=== PATIENT | female | born 1955 | race Hispanic/Latino ===

== ENCOUNTER 2022-06-18 16:14 | Inpatient (IN) | payer MEDICARE ==
[~2022-06-18] VITALS: Ht 157.5 cm; Wt 61.2 kg
[2022-06-18] VITALS (11 sets, daily range): BP systolic 173–218; BP diastolic 75–96
--- NOTE | 2022-06-18 16:15 | NUR ---
PATIENT BROUGHT INTO ROOM VIA EMS STRETCHER IN [facility]. PROVIDER NOTIFIED OF PATIENT STATUS AND MET BEDSIDE IMMEDIATELY.
[2022-06-18 16:42] LABS: BASO% 0.6 % (0-3); EOS% 0.9 % (0-8); HEMATOCRIT 40.2 % (37.0-47.0); IMMATURE GRANULOCYTES 0.1 % (0.0-5.0); LYMPH% 17.4 % (15-41); MEAN CELL VOLUME 87.8 fL CALC (80.0-100.0); MEAN CORPUSCULAR HGB 28.4 pG CALC (26.0-32.0); MEAN CORPUSCULAR HGB CONC 32.3 g/dL CAL (32.0-36.0); MONO% 6.6 % (2-13); NEUT# 5.08 thou/uL (2.00-7.15); NEUT% 74.4 % (42-76); RED BLOOD COUNT 4.58 mill/uL (4.20-5.60); RED CELL DISTRI WIDTH 13.2 % (11.5-15.5)
[2022-06-18 16:58] LABS: PROTHROMBIN TIME 10.4 SECONDS (9.0-12.5)
[2022-06-18 17:01] LABS: ALBUMIN 4.4 g/dL (3.2-5.0); ALKALINE PHOSPHATASE 99 u/l (38-126); ANION GAP 11 (6-22 (CALC)); BUN 13 mg/dL (8-23); BUN/CREATININE RATIO 18 (12-20 (CALC)); CARBON DIOXIDE 26 mmol/l (22-30); CHLORIDE 107 mmol/l (95-108); CREATININE 0.7 mg/dL (0.5-1.0); GFR FOR AFR.AMER. > 60 ML/MIN (>=60 (CALC)); GFR OTHER RACES > 60 ML/MIN (>=60 (CALC)); POTASSIUM 3.9 mmol/l (3.5-5.1); SGOT/AST 37 u/l (9-36); SODIUM 139 mmol/l (137-146); TOTAL PROTEIN 7.9 g/dL (6.3-8.2)
[2022-06-18 17:04] LABS: BILIRUBIN, TOTAL 0.3 mg/dL (0.02-1.3)
--- NOTE | 2022-06-18 17:10 | NUR ---
Reassessment of patient completed. No distress noted.
--- NOTE | 2022-06-18 17:58 | NUR ---
ESCORTED ON STRETCHER BY RADIOLOGY FOR IMAGING.
--- NOTE | 2022-06-18 18:28 | NUR ---
Reassessment of patient completed. No distress noted.
[2022-06-18 20:00] LABS: URINE BILIRUBIN - DIPSTICK NEGATIVE (NEGATIVE); URINE BLOOD DIPSTICK TRACE-INTACT (NEGATIVE); URINE COLOR YELLOW; URINE GLUCOSE - DIPSTICK NEGATIVE (NEGATIVE); URINE KETONE 15 mg/dL (NEGATIVE); URINE LEUK ESTERASE NEGATIVE (NEGATIVE); URINE PH 6.5 (4.5-8.0); URINE PROTEIN - DIPSTICK NEGATIVE (NEG-TRACE); URINE UROBILINOGEN - DIPSTICK 0.2 E.U./dL (0.2)
[2022-06-18 20:04] LABS: URINE NITRITE - DIPSTICK NEGATIVE (Negative)
--- NOTE | 2022-06-18 20:45 | NUR ---
PATIENT ADMITTED TO [facility] VIA STRETCHER TO ROOM. ALERT AND ORIENTED. ABLE TO MAKE NEEDS KNOWN. AMBULATED SELF TO ROOM BED WITHOUT DIFFICULTY. VERY PLEASANT. ASSESSMENT COMPLETE. STRONG WOOD VENEER TAPER TO LEFT HAND, MODERATE TO RIGHT. DENIES ANY PAIN. NO DISTRESS NOTED. ORIENTED PATIENT TO ROOM, CALL LIGHT AND SURROUNDINGS. FOOD PROVIDED AND WATER. BED REMAINS IN LOW POSITION. CALL WINN IN REACH.
[2022-06-19 00:14] VITALS: BP 181/80
--- NOTE | 2022-06-19 00:20 | NUR ---
PATIENT RESTING IN BED ON HER SIDE. DENIES ANY PAIN. NO SIGNS OF WEAKNESS TO RIGHT SIDE. BED REMAINS IN LOW POSITION. CALL WINN IN REACH.
[2022-06-19 04:30] VITALS: BP 208/81
[2022-06-19 06:33] VITALS: BP 189/83
--- NOTE | 2022-06-19 09:09 | NUR ---
CONTACTED VIVIANA ROMERO ([employer] DRIVER) IN REFERENCE TO A NUTRITION CONSULT FOR THIS PATIENT. I SPOKE WITH VIVIANA AT 0908 HRS.
[2022-06-19 10:23] VITALS: BP 190/74
[2022-06-19 14:56] LABS: CALCULATED LDLCHOLESTEROL 143 mg/dL (62-129 (CALC)); CHOLESTEROL HDL RATIO 4.9 (<4.4 (CALC)); HDL CHOLESTEROL 49 mg/dL (39.0-59.0); TOTAL CHOLESTEROL 240 mg/dl (0-199); TOTAL TRIGLYCERIDES 239 mg/dl (0-149); VLDL CHOLESTROL 48 mg/dl (1-41 (CALC))
[2022-06-19 15:23] VITALS: BP 114/48
--- NOTE | 2022-06-19 18:51 | NUR ---
NEUROLOGIST CALLED TO SPEAK TO NURSE AND PATIENT. PATIENT WAS INFORMED OF NEW TEST RESULTS OF MRI/MRA. NEW MED STARTED PLAVIX EDUCATIONS WAS PROVIDED. INFORMED PATIENT AND SON OF ECHO NOT BEEN DONE TILL WEDNESDAY. WILL CONTINUE TO MONITOR BP AND CONDITION.
[2022-06-19 19:00] VITALS: BP 116/51
--- NOTE | 2022-06-19 20:00 | NUR ---
PATIENT RESTING IN BED ALERT AND ABLE TO MAKE NEEDS KNOWN. ASSESSMENT COMPLETE. ABLE TO MOVE ALL EXTREMITIES BUT HAS DIFFICULT TIME RAISING RIGHT ARM OR GRIPPING. HAND TORCH STRAIGHTENER AND HEATER VERY WEAK. ARM DROPS TO BED WHEN PATIENT TRIES TO LEFT. ANTIQUE COLLECTOR MD MADE AWARE OF FINDING. PATIENT DOESNT APPEAR IN DISTRESS. NO COMPLAINTS OF PAIN. I DID VERBALIZE TO PATIENT TO PLEASE USE CALL WINN WHEN NEEDING ASSISTANCE TO AMBULATE DUE TO WEAKNESS. BED REMAINS IN LOW POSITION. CALL WINN IN REACH.
--- NOTE | 2022-06-20 00:05 | NUR ---
PATIENT OBSERVED LAYING IN BED WITH EYES CLOSED. NO COMPLAINTS OF PAIN. NO DISTRESS. PATIENT ABLE TO LIFT RIGHT ARM. ''ITS BETTER''. BED REMAINS IN LOW POSITION. CALL WINN IN REACH.
[2022-06-20 00:25] VITALS: BP 178/69
[2022-06-20 02:00] VITALS: BP 170/70
--- NOTE | 2022-06-20 04:22 | NUR ---
PATIENT REMAINS RESTING IN BED ON HER SIDE. NO SIGNS OF DISTRESS. NO COMPLAINTS OF PAIN. REMAINS BEING ABLE TO USE RIGHT EXTREMITY. BED REMAINS IN LOW POSITION. CALL WINN IN REACH.
[2022-06-20 05:00] VITALS: BP 177/70
[2022-06-20 05:30] LABS: HEMATOCRIT 42.3 % (37.0-47.0); HEMOGLOBIN 13.5 g/dl (12.0-16.0); MEAN CELL VOLUME 89.2 fL CALC (80.0-100.0); MEAN CORPUSCULAR HGB 28.5 pG CALC (26.0-32.0); MEAN CORPUSCULAR HGB CONC 31.9 g/dL CAL (32.0-36.0); RED BLOOD COUNT 4.74 mill/uL (4.20-5.60); RED CELL DISTRI WIDTH 13.4 % (11.5-15.5)
[2022-06-20 05:53] LABS: ALBUMIN 4.1 g/dL (3.2-5.0); ALKALINE PHOSPHATASE 69 u/l (38-126); ANION GAP 12 (6-22 (CALC)); BILIRUBIN, TOTAL 0.3 mg/dL (0.02-1.3); BUN 15 mg/dL (8-23); BUN/CREATININE RATIO 20 (12-20 (CALC)); CARBON DIOXIDE 25 mmol/l (22-30); CHLORIDE 108 mmol/l (95-108); CREATININE 0.7 mg/dL (0.5-1.0); GFR FOR AFR.AMER. > 60 ML/MIN (>=60 (CALC)); GFR OTHER RACES > 60 ML/MIN (>=60 (CALC)); MAGNESIUM 2.2 mg/dL (1.6-2.3); POTASSIUM 4.1 mmol/l (3.5-5.1); SGOT/AST 31 u/l (9-36); SODIUM 140 mmol/l (137-146); TOTAL PROTEIN 7.1 g/dL (6.3-8.2)
[2022-06-20 06:47] VITALS: BP 156/64
[2022-06-20] MEDS ORDERED: AMLODIPINE BESYL5 MG PO (09:40)
[2022-06-20] MEDS ORDERED: LOSARTAN POTASS25 MG PO (09:40)
[2022-06-20] MEDS ORDERED: LIPITOR80 M1 PO (09:40)
[2022-06-20] MEDS ORDERED: PLAVIX75 MG PO (09:40)
[2022-06-20] MEDS ORDERED: VITAMIN B-12500 MCG PO (09:40)
[2022-06-20] MEDS ORDERED: ASPIRIN ADULT L81 M2 PO (09:40)
[2022-06-20 10:27] VITALS: BP 163/68
--- NOTE | 2022-06-20 11:05 | NUR ---
PATIENT DISCHARGE. PIV AND HEART MONITOR REMOVED. SON PRESENT DURING DISCHARGE INSTRUCTIONS. ALL QUESTIONS ANSWERED. PATIENT AND SON STATED UNDERSTANDING. PATIENT WAS TAKEN DOWN STAIRS IN WHEELCHAIR.
== END 2022-06-20 11:05 | disposition home or self-care (01) | DRG 65 ==
LOC: ED 16:14 → ED-I 18:50 → ED 19:22 → MS2 19:23
PROVIDERS: Family Medicine; Psychiatry & Neurology Neurology; ADMIT Internal Medicine; ATTEND Internal Medicine
DX: I63.81 Other cerebral infarction due to occlusion or stenosis of small artery (principal); G81.91 Hemiplegia, unspecified affecting right dominant side; R20.2 Paresthesia of skin; R29.701 NIHSS score 1; R20.0 Anesthesia of skin; R29.810 Facial weakness; I95.9 Hypotension, unspecified; I10 Essential (primary) hypertension
CPT/HCPCS: J3420; Q9967